=== PATIENT | male | born 1975 | race Caucasian/White ===

== ENCOUNTER → 2022-12-09 | Outpatient (CLI) | payer OTHER ==
[2022-12-09 10:48] LABS: BASO # 0.06 K/mm3 (0.02-0.10); EOS # 0.22 K/mm3 (0.04-0.40); EOS % 3.3 % (0.0-4.0); HEMATOCRIT 45.5 % (42.0-52.0); HEMOGLOBIN 15.5 g/dL (13.5-18.0); LYMPH# 1.93 K/mm3 (1.50-4.00); MEAN CELL VOLUME 89 fl (78-100); MEAN CORPUSCULAR HEMOGLOBIN 30 pg (27-31); MEAN CORPUSCULAR HGB CONC 34 g/dL (33-37); MEAN PLATELET VOLUME 9.7 fl (7.4-10.4); MONO # 0.58 K/mm3 (0.20-0.80); NEU # 3.84 K/mm3 (1.40-6.50); PLATELET COUNT 232 K/mm3 (130-400); RED BLOOD COUNT 5.13 M/mm3 (4.20-5.60); RED CELL DISTRIBUTION WIDTH 12.2 % (11.5-14.5); WHITE BLOOD COUNT 6.6 K/mm3 (4.8-10.8)
[2022-12-09 11:03] LABS: ALBUMIN 4.4 g/dL (3.5-5.0); POTASSIUM 4.3 mmol/L (3.5-5.1)
[2022-12-09 11:04] LABS: CALCIUM 9.2 mg/dL (8.3-10.5)
[2022-12-09 11:05] LABS: TOTAL PROTEIN 8.2 g/dL (6.4-8.3)
[2022-12-09 11:07] LABS: TOTAL BILIRUBIN 0.3 mg/dL (0.2-1.2)
== END ==
LOC: LAB 10:20
PROVIDERS: Nurse Practitioner
DX: Z00.00 Encounter for general adult medical examination without abnormal findings (principal); R53.83 Other fatigue; R68.82 Decreased libido; M25.561 Pain in right knee

== ENCOUNTER → 2023-10-20 | Outpatient (CLI) | payer OTHER | LOC: RAD 10-17 08:15 | DX: M50.30 Other cervical disc degeneration, unspecified cervical region (principal); M48.02 Spinal stenosis, cervical region ==

== ENCOUNTER → 2024-04-04 | Outpatient (CLI) | payer OTHER | LOC: RAD 10:06 | DX: M17.11 Unilateral primary osteoarthritis, right knee (principal) ==